=== PATIENT | female | born 1985 | race Asian ===

== ENCOUNTER 2017-01-27 12:29 | Emergency (ER) | payer MEDICAID ==
[2017-01-27 12:49] VITALS: RESP 16; TEMP 98.6; O2SAT 98
[2017-01-27 13:19] VITALS: BP 139/104; PULSE 119
== END 2017-01-27 14:42 | disposition left against medical advice (07) ==
LOC: CED 12:29
DX: R07.0 Pain in throat (principal); Z53.9 Procedure and treatment not carried out, unspecified reason
CPT/HCPCS: 87880-PO

== ENCOUNTER 2017-05-04 12:40 | Emergency (ER) | payer MEDICAID ==
[2017-05-04 12:51] VITALS: TEMP 98.1
--- NOTE | 2017-05-04 13:13 | CPEKG ---
Heart Rate: 109 RR Interval: 550 P-R Interval: 160 QRSD Interval: 78 QT Interval: 340 QTC Interval: 458 P [place]: 43 QRS [place]: 26 T Wave [place]: -7 EKG Severity - BORDERLINE ECG - EKG Impression: SINUS TACHYCARDIA EKG Impression: BORDERLINE T ABNORMALITIES, DIFFUSE LEADS Electronically Signed By: Reggie Long 04-May-2017 15:42:35
[2017-05-04] MEDS ORDERED: NS 1,000 ML IV ONE ×2 (13:17→13:21)
[2017-05-04 13:49] LABS: % IMMATURE GRANULYOCYTES 0.3 % (0.0-1.1); ABSOLUTE IMMATURE GRANULOCYTES 0.03 10^3/uL (0.00-0.10); ADD DIFF? NO; ADD MORPH? YES; ADD SCAN? NO; ATYPICAL LYMPHOCYTE FLAG 10 (0-99); FRAGMENT RBC FLAG 60 (0-99); HEMATOCRIT 36.8 % (38.0-47.0); HEMOGLOBIN 11.5 g/dL (12.6-16.3); LEFT SHIFT FLG 0 (0-99); LIPEMIA HEMOLYSIS FLAG 80 (0-99); MEAN CELL HEMOGLOBIN 17.8 pg (27.9-34.1); MEAN CELL HEMOGLOBIN CONCENTR. 31.3 g/dL (32.4-36.7); PLATELET CLUMPS FLAG 10 (0-99); PLATELET COUNT 395 10^3/uL (150-400); RED BLOOD CELL COUNT 6.47 10^6/uL (4.18-5.33); RED CELL DISTRIBUTION WIDTH 19.2 % (11.5-15.2)
[2017-05-04 13:51] LABS: MEAN CELL VOLUME 56.9 fL (81.5-99.8)
[2017-05-04 14:13] LABS: HYPOCHROMIA 1+; MACROCYTES 1+; MICROCYTES 1+; PLATELET ESTIMATE ADEQUATE (ADEQ); SCHISTOCYTES 1+
[2017-05-04 14:17] LABS: ANION GAP 15 mEq/L (8-16); CALCIUM 9.2 mg/dL (8.5-10.4); CARBON DIOXIDE 17 mEq/l (22-31); CHLORIDE 111 mEq/L (97-110); GLOMERULAR FILTRATION RATE > 60; GLUCOSE 92 mg/dL (70-100); POTASSIUM 3.8 mEq/L (3.5-5.2); SODIUM 143 mEq/L (134-144)
--- NOTE | 2017-05-04 14:35 | EDPHY ---
H & P Stated Complaint: ?syncope or seizure last night/dx bipolar have been adding and changing med Time Seen by Provider: 05/04/17 13:03 HPI/ROS: CHIEF COMPLAINT: Syncope versus seizure HISTORY OF PRESENT ILLNESS: The patient presents to the ED after an unwitnessed event at home the last night. The patient reportedly had a sensation of presyncope. The patient experienced generalized lightheadedness. She did have some diffuse extremity paresthesias. She had some difficulty using her phone and then had an event where she loss consciousness. She reportedly was found by her laying on the couch sometime later. There was no reported history of incontinence or tongue bite. The patient reported that she has had no recurrent episodes since the initial event. She has no prior history of seizure disorder. The patient denies any history of drug use. She is on a number of medications for bipolar mood disorder. She currently denies headache, focal numbness, weakness, fever or other acute complaints. The patient does report that she did not have much to eat or drink. Source: Patient Exam Limitations: No limitations - Personal History LMP (Females 10-55): 22-28 Days Ago Current Tetanus/Diphtheria Vaccine: Yes - Medical/Surgical History Hx Asthma: No Hx Chronic Respiratory Disease: No Hx Diabetes: No Hx Cardiac Disease: No Hx Renal Disease: No Hx Cirrhosis: No Hx Alcoholism: No Hx HIV/AIDS: No Hx Splenectomy or Spleen Trauma: No Other PMH: PMH: hypothyriod, anxiety; PNA; bronchitis bipolar. PSH: - Social History Smoking Status: Never smoked - Physical Exam Exam: General Appearance: Alert, no distress Eyes: Pupils equal and round no pallor or injection ENT, Mouth: Mucous membranes moist Respiratory: There are no retractions, lungs are clear to auscultation Cardiovascular: Regular rate and rhythm Gastrointestinal: Abdomen is soft and nontender, no masses, bowel sounds normal Neurological: A&O, normal motor function, normal sensory exam, normal cranial nerves Skin: Warm and dry, no rashes Musculoskeletal: Neck is supple nontender Extremities: symmetrical, full range of motion Constitutional: Initial Vital Signs Temperature (C) 36.7 C 05/04/17 12:48 Heart Rate 112 H 05/04/17 12:48 Respiratory Rate 22 H 05/04/17 12:48 Blood Pressure 132/95 H 05/04/17 12:48 O2 Sat (%) 99 06/10/17 12:48 O2 Delivery Mode Room Air Allergies/Adverse Reactions: bacitracin [Bacitracin] Allergy (Mild, Verified 05/04/17 12:47) DERMATITIS cephalexin monohydrate [From Keflex] Allergy (Mild, Verified 05/04/17 12:47) DERMATITIS sumatriptan [From Imitrex] Allergy (Unknown, Verified 05/04/17 12:47) sumatriptan succinate [From Imitrex] Allergy (Unknown, Verified 05/04/17 12:47) Sulfa (Sulfonamide Antibiotics) Allergy (Verified 05/04/17 12:47) DATES Allergy (Uncoded 01/27/17 12:49) Home Medications: Medication Instructions Recorded Thyroid,Pork [ARMOUR THYROID] 75 mg PO 03/29/15 Topamax 07/18/16 Ativan 01/27/17 Adderall Xr 10 mg Capsule 05/04/17 Buspar (*) 05/04/17 LaMICtal 05/04/17 Seroquel 05/04/17 Medical Decision Making - Diagnostics EKG Interpretation: EKG: Complete interpretation has been separately recorded in the [facility]aced[facility] archive. Summary impression: Sinus rhythm ED Course/Re-evaluation: The patient presents to the ED after a unwitnessed syncopal event versus seizure at home last night. The patient had no recurrent events today. In the emergency department she is noted to be neurologically intact. She has a sinus rhythm noted on monitor. The patient had an IV established he received a L of normal saline. The patient was noted to have a slight acidosis with a CO2 of 17. The remainder of her laboratory studies are unremarkable. test is negative and CBC is normal. The patient was observed in the emergency department without any recurrent issues for 2 hours. I had a lengthy discussion with the patient about the possible diagnoses. It certainly seems that this certainly could have been a vasovagal episode as she did have decreased oral intake yesterday. I have told the patient that I cannot fully exclude the possibility of a seizure disorder. I will ask the patient to return to the emergency department for any recurrent events. She should follow up with a neurologist for consideration of additional testing. I have asked her to not drive or participate in dangerous activities until cleared to do so by Neurology. The patient has nothing to suggest meningitis, a arrhythmia, clinical/ historical evidence of pulmonary embolism, ectopic or other worrisome explanation for syncope. Differential Diagnosis: Differential diagnosis considered includes seizure, syncope, dehydration, metabolic abnormality, ruptured ectopic - Data Points Laboratory Results: Laboratory Results 05/04/17 13:30 05/04/17 13:30 05/04/17 05/04/17 05/04/17 13:30 13:30 13:30 WBC 9.74 10^3/uL H 10^3/uL (3.80-9.50) RBC 6.47 10^6/uL H 10^6/uL (4.18-5.33) Hgb 11.5 g/dL L g/dL (12.6-16.3) Hct 36.8 % L % (38.0-47.0) MCV 56.9 fL L fL (81.5-99.8) MCH 17.8 pg L pg (27.9-34.1) MCHC 31.3 g/dL L g/dL (32.4-36.7) RDW 19.2 % H % (11.5-15.2) Plt Count 395 10^3/uL 10^3/uL (150-400) MPV TNP Neut % (Auto) 64.0 % % (39.3-74.2) Lymph % (Auto) 24.6 % % (15.0-45.0) [place] % (Auto) 9.2 % % (4.5-13.0) Eos % (Auto) 1.3 % % (0.6-7.6) Baso % (Auto) 0.6 % % (0.3-1.7) Nucleat RBC Rel Count 0.0 % % (0.0-0.2) Absolute Neuts (auto) 6.22 10^3/uL 10^3/uL (1.70-6.50) Absolute Lymphs (auto) 2.40 10^3/uL 10^3/uL (1.00-3.00) Absolute Monos (auto) 0.90 10^3/uL H 10^3/uL (0.30-0.80) Absolute Eos (auto) 0.13 10^3/uL 10^3/uL (0.03-0.40) Absolute Basos (auto) 0.06 10^3/uL 10^3/uL (0.02-0.10) Absolute Nucleated RBC 0.00 10^3/uL 10^3/uL (0-0.01) Immature Gran % 0.3 % % (0.0-1.1) Immature Gran # 0.03 10^3/uL 10^3/uL (0.00-0.10) Platelet Estimate ADEQUATE (ADEQ) Hypochromasia 1+ H Microcytic Cells 1+ H Oval Macrocytes 1+ H Schistocytes 1+ H Smear Review By Pending Sodium 143 mEq/L mEq/L (134-144) Potassium 3.8 mEq/L mEq/L (3.5-5.2) Chloride 111 mEq/L H mEq/L (97-110) Carbon Dioxide 17 mEq/l L mEq/l (22-31) Anion Gap 15 mEq/L mEq/L (8-16) BUN 12 mg/dL mg/dL (7-23) Creatinine 1.0 mg/dL mg/dL (0.6-1.0) Estimated GFR > 60 Glucose 92 mg/dL mg/dL (70-100) Calcium 9.2 mg/dL mg/dL (8.5-10.4) Beta HCG, Qual NEGATIVE Medications Given: Discontinued Medications Sodium Chloride (Ns) 1,000 mls @ 0 mls/hr IV ONCE ONE; Wide Open PRN Reason: Protocol Stop: 05/04/17 13:18 Last Admin: 05/04/17 13:36 Dose: 1,000 mls Sodium Chloride (Ns) 1,000 mls @ 0 mls/hr IV ONCE ONE; Wide Open PRN Reason: Protocol Stop: 05/04/17 13:22 Last Admin: 05/04/17 13:42 Dose: 1,000 mls Departure - Departure Disposition: Home, Routine, Self-Care Clinical Impression: Syncope, Possible seizure Condition: Good Instructions: Syncope (ED) Additional Instructions: 1. No driving, dangerous activities such as riding a ski lift, swimming in a pool or other behavior that could put you or someone else at risk in the event of a recurrent seizure. You will need to be cleared by a neurologist to resume these activities. 2. Please return to the ED for recurrent seizure, headache, numbness, weakness, altered mental status or other concerns. 3. Please follow up with neurologist you have been referred to this week to schedule a follow-up appointment. 4. At this point time it is certainly possible that you simply passed out secondary to dehydration. Unfortunately, I am unable to fully exclude the possibility of a seizure. For this reason we should have you seen by Neurology for further evaluation. Referrals: [facility] [Other] - As per Instructions Atilio Benitez MD [Medical Doctor] - As per Instructions
[2017-05-04 15:10] VITALS: BP 118/86; PULSE 104; RESP 16; O2SAT 97
== END 2017-05-04 15:09 | disposition home or self-care (01) ==
DX: R55 Syncope and collapse (principal)

== ENCOUNTER 2018-10-30 09:48 | Emergency (ER) | payer MEDICAID ==
[2018-10-30] MEDS ORDERED: NS 1,000 ML IV ONE (10:23)
[2018-10-30] MEDS ORDERED: fentaNYL 100 MCG/2 ML INJ IVP ONE (10:45)
[2018-10-30] MEDS ORDERED: ONDANSETRON 4 MG/2 ML VIAL IVP ONE (10:45)
--- NOTE | 2018-10-30 10:51 | EDPHY ---
HPI/HX/ROS/PE/MDM Narrative: CLINICAL IMPRESSION: Right ureterolithiasis, nausea ASSESSMENT/PLAN: 33-year-old female presents to the emergency department with right lower quadrant pain since this morning associated with nausea. No UTI symptoms, patient is currently on her menses. She has rebound tenderness on initial exam with no focal peritoneal findings or guarding. She has a history of thalassemia minor beta type with reports of a chronic mild leukocytosis although unsure of what her baseline is. She does have a leukocytosis of 13 today. She is at her baseline hemoglobin and hematocrit. Urine does not show sign of infection and she reports no dysuria, urgency or flank pain. Pelvic ultrasound shows a chronic appearing left ovarian cyst, a slightly thickened endometrium consistent with patient's menses, but otherwise no abnormal findings and a nonvisualized appendix. Given patient's persistent pain is CT was obtained. Her appendix is normal although she has a 4.3 mm right UPJ stone with mild hydronephrosis. Patient received only a single dose of fentanyl 50 mcg with improved pain and did not require additional IV analgesics. She was discharged on Flomax and given prescription for oral analgesics to use if needed. Encouraged PCP recheck and encouraged her to strain her urine. Warning signs return to ED sooner outlined and discharge. DIFFERENTIAL DX: Abdominal pain includes but not limited to urinary tract infection, pyelonephritis, infection, ectopic , salpingitis, TOA, ovarian torsion, ovarian cyst, endometriosis, uterine fibroids, acute appendicitis, acute diverticulitis, small-bowel obstruction, constipation ED PROCEDURES: See lab and imaging results below ED COURSE: 1:00 p.m.: Patient reassessed, labs reviewed, continues to have right lower quadrant pain although not as bad as on arrival. Declining additional analgesics at this time. Ultrasound shows no abnormal findings, normal ovaries, no evidence of torsion or significant cyst, chronic appearing left cyst. Nonvisualized appendix. Will CT. Patient in agreement. 1:50 p.m.: CT scan results discussed with Radiology. Patient has a 4.3 mm right UPJ calculus with mild hydronephrosis. Appendix is normal. On reassessment, patient is feeling well, reports no pain and does not want additional IV analgesics. CHIEF COMPLAINT: Right lower quadrant abdominal pain HPI: 33-year-old female with a history of thalassemia minor beta type and hypothyroidism presents to the emergency department with right lower quadrant pain that woke her up at 2:00 a.m. This morning. She took ibuprofen at that time which allowed her to sleep but awoke this morning with persistent and worsening pain. This is associated with nausea and 3 episodes of nonbloody diarrhea. No vomiting. No pelvic pain, dysuria, urgency. She is on the last day of her menstrual cycle and does not believe she could be . No history of abnormal findings including ovarian cysts, endometriosis, or uterine fibroids. She has had a prior . No flank pain or back pain. No epigastric pain chest pain or shortness of breath. She did not take anything prior to arrival. Four days ago she reports having some periumbilical cramping which she thought was due to her menstrual cycle. She is followed by Dr. Brooks with [facility] and states her hemoglobin is normally around 10 and that her white blood count is usually slightly elevated. PMH: Thalassemia minor beta type, hypothyroidism, bipolar disorder Pertinent Past Surgical History: Prior Family History: None reported Social History: Nonsmoker REVIEW OF SYSTEMS: All other systems negative Constitutional: No fever, no chills, +appetite change. ENT: No sore throat, congestion, ear pain. Cardiovascular: No chest pain, no palpitations. Respiratory: No cough, no shortness of breath. Gastrointestinal: no vomiting Genitourinary: No hematuria, dysuria, flank pain, pelvic pain Musculoskeletal: No back pain, joint swelling, joint pain, myalgias. Skin: No rashes, color change. PHYSICAL EXAM: General Appearance: Alert, oriented, appropriate, cooperative, NAD, well hydrated, non-toxic appearing, tachycardic, hypertensive, appears uncomfortable no hypoxia. HEENT: Oropharynx clear is no erythema or exudates, no tonsillar hypertrophy or asymmetry. Dentition without abnormality.] Neck: Supple, nontender, no lymphadenopathy, no midline pain, FROM, no meningismus. Respiratory: There are no retractions, lungs are clear to auscultation. Cardiac: Regular rate and rhythm, no murmurs or gallops. Gastrointestinal: Abdomen is soft, right lower quadrant tenderness with rebound pain. This extends into the periumbilical area. No rigidity bowel sounds normal, no masses/hernia, no rigidity, guarding Neurological: Alert and oriented x 3, CN 2-12 grossly intact, normal gait no ataxia, DTR's intact, normal sensation and strength Skin: Warm, dry, no rashes, no nodules on palpation. MEDICAL DECISION MAKING: Patient was seen independently. Secondary supervising physician at time of evaluation was Dr. Mcclure. Diagnosis: Right ureterolithiasis, nausea. New, requires workup Summary: See Assessment and Plan for summary of ED visit Clinical lab tests: ordered / reviewed. Independent visualization of images, tracing, or specimens: Yes. Discussed patient with another provider: [facility] Patient Progress: Improved. - Data Points Imaging Results: Imaging Impressions Abdomen Ultrasound 10/30/18 10:46 Impression: 1. Mildly thickened endometrial stripe measuring 14 mm without internal color flow enhancement. 2. Relatively stable cystic structure along the left lateral margin of the uterine body to fundus along the pelvic sidewall and compared to CT study from December,. This could represent incidental lymphocele or mesenteric cyst versus paraovarian cyst. 3. Normal-appearing follicles associated with each ovary. 4. A dilated appendix is not visualized although the appendix was not positively identified. Findings discussed with Gideon Tipton PAC at 12:41 hour, 10/30/2018. Pelvic/Renal Ultrasound 10/30/18 10:46 Impression: 1. Mildly thickened endometrial stripe measuring 14 mm without internal color flow enhancement. 2. Relatively stable cystic structure along the left lateral margin of the uterine body to fundus along the pelvic sidewall and compared to CT study from December,. This could represent incidental lymphocele or mesenteric cyst versus paraovarian cyst. 3. Normal-appearing follicles associated with each ovary. 4. A dilated appendix is not visualized although the appendix was not positively identified. Findings discussed with Gideon Tipton PAC at 12:41 hour, 10/30/2018. Abdomen CT 10/30/18 13:00 Impression: 1. Calculus at the right UPJ with mild right-sided hydronephrosis as well as 2 additional nonobstructive calculi lower pole right kidney. 2. No CT evidence of appendicitis, abscess or bowel obstruction. 3. Incidental cystic structure along the left side of the uterine fundus similar to the prior study. This could represent mesenteric cyst, paraovarian cyst, or lymphocele. This has a benign appearance. Findings discussed with Gideon Tipton PAC at 13:52 hour, 10/30/2018. Laboratory Results: Laboratory Results 10/30/18 10:28 10/30/18 10:28 10/30/18 10/30/18 10/30/18 12:00 10:28 10:28 WBC 13.86 10^3/uL H 10^3/uL (3.80-9.50) RBC 5.62 10^6/uL H 10^6/uL (4.18-5.33) Hgb 10.4 g/dL L g/dL (12.6-16.3) Hct 33.3 % L % (38.0-47.0) MCV 59.3 fL L fL (81.5-99.8) MCH 18.5 pg L pg (27.9-34.1) MCHC 31.2 g/dL L g/dL (32.4-36.7) RDW 15.0 % % (11.5-15.2) Plt Count 356 10^3/uL 10^3/uL (150-400) MPV 10.4 fL fL (8.7-11.7) Neut % (Auto) 68.3 % % (39.3-74.2) Lymph % (Auto) 25.0 % % (15.0-45.0) [place] % (Auto) 4.0 % L % (4.5-13.0) Eos % (Auto) 1.7 % % (0.6-7.6) Baso % (Auto) 0.4 % % (0.3-1.7) Nucleat RBC Rel Count 0.0 % % (0.0-0.2) Absolute Neuts (auto) 9.47 10^3/uL H 10^3/uL (1.70-6.50) Absolute Lymphs (auto) 3.46 10^3/uL H 10^3/uL (1.00-3.00) Absolute Monos (auto) 0.56 10^3/uL 10^3/uL (0.30-0.80) Absolute Eos (auto) 0.24 10^3/uL 10^3/uL (0.03-0.40) Absolute Basos (auto) 0.05 10^3/uL 10^3/uL (0.02-0.10) Absolute Nucleated RBC 0.00 10^3/uL 10^3/uL (0-0.01) Immature Gran % 0.6 % % (0.0-1.1) Immature Gran # 0.08 10^3/uL 10^3/uL (0.00-0.10) Platelet Estimate ADEQUATE (ADEQ) Polychromasia 1+ H Hypochromasia 1+ H Microcytic Cells 2+ H Target Cells 1+ H Elliptocytes 1+ H Schistocytes 1+ H Smear Review By Pending Sodium 140 mEq/L mEq/L (135-145) Potassium 3.8 mEq/L mEq/L (3.5-5.2) Chloride 109 mEq/L mEq/L (97-110) Carbon Dioxide 21 mEq/l L mEq/l (22-31) Anion Gap 10 mEq/L mEq/L (6-14) BUN 9 mg/dL mg/dL (7-23) Creatinine 0.8 mg/dL mg/dL (0.6-1.0) Estimated GFR > 60 Glucose 121 mg/dL H mg/dL (70-100) Calcium 8.6 mg/dL mg/dL (8.5-10.4) Urine Color YELLOW Urine Appearance MODERATELY TURBID Urine pH 6.0 (5.0-7.5) Ur Specific [place] 1.019 (1.002-1.030) Urine Protein 1+ H (NEGATIVE) Urine Ketones NEGATIVE (NEGATIVE) Urine Blood 3+ H (NEGATIVE) Urine Nitrate NEGATIVE (NEGATIVE) Urine Bilirubin NEGATIVE (NEGATIVE) Urine Urobilinogen NEGATIVE EU EU (0.2-1.0) Ur Leukocyte Esterase NEGATIVE (NEGATIVE) Urine RBC 50-182 /hpf H /hpf (0-3) Urine WBC 5-10 /hpf H /hpf (0-3) Ur Epithelial Cells 1+ /lpf /lpf (NONE-1+) Urine Mucus 4+ /lpf H /lpf (NONE-1+) Urine Glucose NEGATIVE (NEGATIVE) Medications Given: Discontinued Medications Fentanyl (Sublimaze) 50 mcg IVP EDNOW ONE Stop: 10/30/18 10:46 Last Admin: 10/30/18 10:53 Dose: 50 mcg Sodium Chloride (Ns) 1,000 mls @ 0 mls/hr IV EDNOW ONE; Wide Open PRN Reason: Protocol Stop: 10/30/18 10:24 Last Admin: 10/30/18 10:47 Dose: 1,000 mls Ondansetron HCl (Zofran) 4 mg IVP EDNOW ONE Stop: 10/30/18 10:46 Last Admin: 10/30/18 10:53 Dose: 4 mg Point of Care Test Results: Urine Collection Date 10/30/18 Collection Time 11:35 HCG Results Negative General Time Seen by Provider: 10/30/18 10:23 Initial Vital Signs: Initial Vital Signs Temperature (C) 36.3 C 10/30/18 10:11 Heart Rate 106 H 10/30/18 10:11 Respiratory Rate 18 10/30/18 10:11 Blood Pressure 152/101 H 10/30/18 10:11 O2 Sat (%) 99 10/30/18 10:11 O2 Delivery Mode Room Air Allergies/Adverse Reactions: No Known Allergies Allergy (Unverified 10/30/18 10:11) Home Medications: Medication Instructions Recorded Thyroid,Pork [ARMOUR THYROID] 75 mg PO 03/29/15 Topamax 07/18/16 Ativan 01/27/17 Adderall Xr 10 mg Capsule 05/04/17 Buspar (*) 05/04/17 LaMICtal 05/04/17 Seroquel 05/04/17 Hydrocodone/APAP 5/325 [[place] 1 - 2 tab PO Q4H PRN #10 tab 10/30/18 5/325 (*)] Tamsulosin HCl [Flomax 0.4 MG (RX)] 0.4 mg PO DAILY #7 cap 10/30/18 Departure - Departure Disposition: Home, Routine, Self-Care Clinical Impression: Ureterolithiasis Condition: Good Instructions: Ureteral Stones (ED) Additional Instructions: DISCHARGE INSTRUCTIONS FROM YOUR DOCTOR Thank you for visiting our emergency department today. Please keep in mind that discharge from the emergency department does not mean that there is nothing wrong - it simply means that we have not identified an emergency condition that requires further evaluation or treatment in the hospital. You should always plan to follow up with primary care for re-evaluation of your condition in the next 2-3 days. If you have been referred to a specialist, please call as soon as possible (today or tomorrow) to schedule your follow up appointment at the appropriate time. CT scan revealed a 4.3 mm right-sided stone in the ureter. This does not appear to be infected. You have mild swelling around the right kidney that will likely resolve after you pass the stone. Ultrasound showed no abnormal findings in the pelvis. You have a small elevation in your white blood count 13. Please compare with your baseline. Please follow-up with primary care doctor tomorrow to recheck. Use pain medication if needed. Take Flomax daily. Return to the emergency department immediately for worsening abdominal pain, development of fevers greater than 100.4, vomiting, inability to urinate, or any other concerns. People present with illnesses and injuries in different ways, and it is always possible that we have missed something. You may always return for re-evaluation if symptoms worsen or if they are not improving or if you develop new/different symptoms. Again, thank you for choosing our emergency department. We hope that you feel better. Referrals: NONE *PRIMARY CARE P,. [Primary Care Provider] - As per Instructions Michelle Brooks MD [Medical Doctor] - As per Instructions Prescriptions: Hydrocodone/APAP 5/325 [[place] 5/325 (*)] 1 - 2 tab PO Q4H PRN #10 tab PRN Reason: Pain, Moderate Tamsulosin HCl [Flomax 0.4 MG (RX)] 0.4 mg PO DAILY #7 cap
[2018-10-30 11:16] LABS: PLATELET COUNT 356 10^3/uL (150-400)
[2018-10-30] MEDS ORDERED: IOPAMIDOL (ISOVUE-300) 100 ML BTL ONE (13:09)
[2018-10-30 14:40] VITALS: BP 108/71
== END 2018-10-30 14:40 | disposition home or self-care (01) ==
DX: N20.1 Calculus of ureter (principal); R11.0 Nausea; E86.9 Volume depletion, unspecified
CPT/HCPCS: 96374; J2405; J3010; Q9967